=== PATIENT | male | born 1980 | race Caucasian/White ===

== ENCOUNTER 2021-03-08 10:56 | Emergency (ER) | payer MEDICAID, OTHER ==
[~2021-03-08] VITALS: Ht 182.9 cm; Wt 90.7 kg
[2021-03-08] MEDS ORDERED: CLIN300C12 PO (11:22)
[2021-03-08] MEDS ORDERED: AMOX-427 PO (11:22)
--- NOTE | 2021-03-08 11:37 | NUR ---
SEEN AND EVALUATED BY DR BROWN, DISCHARGE W/ ACI AND PRESCRIPTION.
[2021-03-08 11:39] VITALS: BP 130/86
== END 2021-03-08 11:39 | disposition home or self-care (01) ==
LOC: ER 11:03
DX: L01.00 Impetigo, unspecified (principal); L03.211 Cellulitis of face